=== PATIENT | female | born 1950 | race Native Hawaiian/Other Pacific Islander ===

== ENCOUNTER 2016-06-12 09:58 | Outpatient (CLI) | payer OTHER | END 2016-06-12 19:28 | disposition home or self-care (01) | LOC: MAMMO 09:58 | DX: Z12.31 Encounter for screening mammogram for malignant neoplasm of breast (principal) | CPT/HCPCS: G0202-TC ==

== ENCOUNTER 2017-06-21 11:11 | Outpatient (CLI) | payer OTHER | END 2017-06-21 20:07 | disposition home or self-care (01) | LOC: MAMMO 11:11 | DX: Z12.31 Encounter for screening mammogram for malignant neoplasm of breast (principal) ==

== ENCOUNTER 2018-08-19 10:28 | Outpatient (CLI) | payer OTHER | END 2018-08-19 22:40 | disposition home or self-care (01) | LOC: LABW 10:28 | DX: K64.0 First degree hemorrhoids (principal) | CPT/HCPCS: 82272 ==

== ENCOUNTER 2018-11-29 11:16 | Outpatient (CLI) | payer OTHER | END 2018-11-29 23:17 | disposition home or self-care (01) | LOC: MAMMO 11:16 | DX: Z12.31 Encounter for screening mammogram for malignant neoplasm of breast (principal) ==

== ENCOUNTER 2019-09-28 10:20 | Outpatient (CLI) | payer OTHER | END 2019-09-28 22:23 | disposition home or self-care (01) | LOC: LABW 10:20 | DX: K64.0 First degree hemorrhoids (principal) | CPT/HCPCS: 82272 ==

== ENCOUNTER 2019-12-28 12:58 | Outpatient (CLI) | payer OTHER | END 2019-12-28 21:52 | disposition home or self-care (01) | LOC: MAMMO 12:58 | DX: Z12.31 Encounter for screening mammogram for malignant neoplasm of breast (principal) ==

== ENCOUNTER 2020-10-18 11:37 | Outpatient (CLI) | payer OTHER | END 2020-10-18 17:00 | disposition home or self-care (01) | LOC: LABW 11:37 | PROVIDERS: ATTEND Internal Medicine Gastroenterology | DX: K64.0 First degree hemorrhoids (principal) | CPT/HCPCS: 82272 ==

== ENCOUNTER 2021-02-21 14:26 | Outpatient (CLI) | payer OTHER | END 2021-02-21 21:05 | disposition home or self-care (01) | LOC: MAMMO 14:26 | PROVIDERS: ATTEND Specialist | DX: Z12.31 Encounter for screening mammogram for malignant neoplasm of breast (principal); N95.1 Menopausal and female climacteric states ==

== ENCOUNTER 2021-07-21 11:25 | Outpatient (CLI) | payer OTHER | END 2021-07-21 18:58 | disposition home or self-care (01) | LOC: RAD 11:25 | PROVIDERS: ATTEND Orthopaedic Surgery | DX: M25.552 Pain in left hip (principal) ==

== ENCOUNTER 2021-09-29 08:19 | Outpatient (CLI) | payer OTHER | END 2021-09-29 18:58 | disposition home or self-care (01) | LOC: LABW 08:19 | PROVIDERS: ATTEND Internal Medicine Gastroenterology | DX: K64.0 First degree hemorrhoids (principal) | CPT/HCPCS: 82272 ==

== ENCOUNTER 2022-03-06 09:49 | Outpatient (CLI) | payer OTHER | END 2022-03-06 20:28 | disposition home or self-care (01) | LOC: MAMMO 09:49 | PROVIDERS: ATTEND Specialist | DX: Z12.31 Encounter for screening mammogram for malignant neoplasm of breast (principal) ==

== ENCOUNTER 2022-12-14 13:30 | Outpatient (CLI) | payer OTHER | END 2022-12-14 19:22 | disposition home or self-care (01) | LOC: RAD 13:30 | PROVIDERS: ATTEND Orthopaedic Surgery | DX: M25.552 Pain in left hip (principal) ==